=== PATIENT | female | born 1985 | race Caucasian/White ===

== ENCOUNTER 2016-07-29 21:26 | Inpatient (IN) | payer BC ==
[~2016-07-29] VITALS: Ht 171.7 cm; Wt 101.6 kg
[2016-07-29 21:26] VITALS: BP_SYST 153
[~2016-07-29 21:26] MED LIST: ALBU17AE26 IH; LEVO175T2 PO
[2016-07-29] MEDS ORDERED: LIDOCAINE/EPI 1% 1:100000 20 ML VIAL INJ ONE (22:00)
[2016-07-29] MEDS ORDERED: MORPHINE 4 MG/ML INJ. SYRINGE IVP ONE (22:15)
[2016-07-29] MEDS ORDERED: NACL 0.9% 1,000 ML IV ONE (22:15)
[2016-07-29] MEDS ORDERED: ONDANSETRON HCL 4 MG/2 ML VIAL IVP ONE (22:15)
[2016-07-29 22:44] LABS: BASOPHILS % (AUTO) 0.5 % (0.0-2.0); EOSINOPHILS # (AUTO) 0.9 K/uL (0.0-0.4); EOSINOPHILS % (AUTO) 9.3 % (0.0-4.0); HEMATOCRIT 31.8 % (36-48); HEMOGLOBIN 11.2 g/dL (12.0-16.0); LYMPHOCYTES # (AUTO) 3.1 K/uL (1.0-5.5); MEAN CORPUSCULAR HEMOGLOBIN 26 pg (27-31); MEAN CORPUSCULAR HGB CONC 35 % (32-36); MEAN CORPUSCULAR VOLUME 73 fL (79.0-98.0); MONOCYTES # (AUTO) 0.7 K/uL (0.0-1.0); MONOCYTES % (AUTO) 7.5 % (1.7-9.3); NEUTROPHILS # (AUTO) 4.9 K/uL (1.8-7.7); NEUTROPHILS % (AUTO) 50.7 % (40.0-70.0); PLATELET COUNT (AUTO) 204 K/uL (130-430); RED BLOOD CELL COUNT(AUTO) 4.35 MIL/uL (4.2-6.2); RED CELL DISTRIBUTION WIDTH 14.6 % (9.0-15.0); WHITE BLOOD COUNT (AUTO) 9.6 K/uL (4.8-10.8)
[2016-07-29 23:05] LABS: BILIRUBIN,URINE NEGATIVE (NEGATIVE); CLARITY/URINE CLEAR (CLEAR); COLOR,URINE YELLOW (YELLOW); GLUCOSE,URINE NEGATIVE (NEGATIVE); KETONES,URINE NEGATIVE (NEGATIVE); LEUKOCYTE ESTERASE ,URINE NEGATIVE (NEGATIVE); NITRITE, URINE NEGATIVE (NEGATIVE); PH,URINE 5.5 (5.0-8.0); PROTEIN URINE NEGATIVE (NEGATIVE); UROBILINOGEN,URINE 0.2 (0.2-1.0)
[2016-07-29 23:05] LABS: CALCIUM 8.3 mg/dL (8.4-11.0); CREATININE 0.89 mg/dL (0.55-1.30)
[2016-07-29 23:07] LABS: BLOOD, URINE TRACE (NEGATIVE)
[2016-07-29 23:09] LABS: ALBUMIN 3.7 g/dL (3.4-4.8); TOTAL BILIRUBIN 0.2 mg/dL (0.0-1.0); TOTAL PROTEIN, SERUM 7.2 g/dL (6.4-8.3)
[2016-07-29 23:23] LABS: BACTERIA,URINE FEW /HPF (None Seen); MUCUS,URINE None Seen /LPF (None Seen); RBC,URINE 0-3 /HPF (0-3)
[2016-07-30] MEDS ORDERED: MORPHINE 4 MG/ML INJ. SYRINGE IVP ONE
[2016-07-30] MEDS ORDERED: DIPHENHYDRAMINE INJ 50 MG/ML VIAL IVP ONE (01:15)
[2016-07-30] MEDS ORDERED: D5LR 1,000 ML IV SCH (03:00)
[2016-07-30 03:30] VITALS: BP_SYST 102
[2016-07-30 03:36] VITALS: BP_SYST 102
[2016-07-30] MEDS: MORPHINE 4 MG/ML INJ. SYRINGE IVP PRN ×3 (04:31→11:13)
[2016-07-30] MEDS: DIPHENHYDRAMINE INJ 50 MG/ML VIAL IVP PRN (07:01)
[2016-07-30 08:16] VITALS: BP_SYST 95
[2016-07-30] MEDS ORDERED: GASTROGRAFIN 120 ML ONE (08:36)
[2016-07-30] MEDS ORDERED: LOPERAMIDE HCL 2 MG CAPSULE PO ONE (11:30)
[2016-07-30] MEDS ORDERED: LOPERAMIDE HCL 2 MG CAPSULE PO PRN (11:30)
[2016-07-30 11:45] VITALS: BP_SYST 114
[2016-07-30] MEDS ORDERED: LACTOBACILLUS RHAMNOSUS GG 1 CAP CAPSULE PO ONE (11:45)
[2016-07-30] MEDS: LR 1,000 ML IV SCH ×2 (11:58→21:14)
[2016-07-30] MEDS: cefTRIAXone 1 GM IVPB PREMIX 50 ML IV SCH (12:44)
[2016-07-30] MEDS: metroNIDAZOLE 500 MG TABLET PO SCH ×2 (14:36→21:13)
[2016-07-30] MEDS: HYDROmorphone 1 MG INJ. 1 MG/ML AMPUL IVP PRN ×3 (14:37→23:35)
[2016-07-30] MEDS ORDERED: PANTOPRAZOLE SODIUM 40 MG/VIAL (PROTONIX) IVP ONE (17:00)
[2016-07-30 18:21] VITALS: BP_SYST 122
[2016-07-30 20:00] VITALS: BP_SYST 115
[2016-07-30] MEDS: LACTOBACILLUS RHAMNOSUS GG 1 CAP CAPSULE PO SCH (21:13)
[2016-07-31] VITALS: BP_SYST 101
[2016-07-31] MEDS: HYDROmorphone 1 MG INJ. 1 MG/ML AMPUL IVP PRN ×4 (03:33→22:03)
[2016-07-31] MEDS: LR 1,000 ML IV SCH ×4 (03:33→22:03)
[2016-07-31 04:00] VITALS: BP_SYST 112
[2016-07-31] MEDS: metroNIDAZOLE 500 MG TABLET PO SCH ×3 (05:14→21:14)
[2016-07-31 06:35] LABS: PROTHROMBIN TIME 10.4 SECS (9.5-12.5)
[2016-07-31 06:40] LABS: CALCIUM 8.4 mg/dL (8.4-11.0); CREATININE 0.84 mg/dL (0.55-1.30); POTASSIUM 4.1 mmol/L (3.5-5.1)
[2016-07-31 06:58] LABS: BASOPHILS # (AUTO) 0.1 K/uL (0.0-0.2); BASOPHILS % (AUTO) 1.7 % (0.0-2.0); EOSINOPHILS # (AUTO) 0.7 K/uL (0.0-0.4); EOSINOPHILS % (AUTO) 10.5 % (0.0-4.0); HEMATOCRIT 31.9 % (36-48); HEMOGLOBIN 9.9 g/dL (12.0-16.0); LYMPHOCYTES # (AUTO) 1.9 K/uL (1.0-5.5); LYMPHOCYTES % (AUTO) 28.5 % (20.5-51.5); MEAN CORPUSCULAR HEMOGLOBIN 23 pg (27-31); MEAN CORPUSCULAR HGB CONC 31 % (32-36); MEAN CORPUSCULAR VOLUME 74 fL (79.0-98.0); MONOCYTES # (AUTO) 0.7 K/uL (0.0-1.0); MONOCYTES % (AUTO) 9.9 % (1.7-9.3); NEUTROPHILS # (AUTO) 3.4 K/uL (1.8-7.7); NEUTROPHILS % (AUTO) 49.4 % (40.0-70.0); PLATELET COUNT (AUTO) 189 K/uL (130-430); RED BLOOD CELL COUNT(AUTO) 4.28 MIL/uL (4.2-6.2); RED CELL DISTRIBUTION WIDTH 14.9 % (9.0-15.0)
[2016-07-31 07:06] LABS: WHITE BLOOD COUNT (AUTO) 6.8 K/uL (4.8-10.8)
[2016-07-31 07:25] LABS: IRON (SERUM) 47 mcg/dL (37-145); TOTAL IRON BIND. CAPACITY 346 ug/dL (250-450)
[2016-07-31 07:55] VITALS: BP_SYST 123
[2016-07-31] MEDS: PANTOPRAZOLE SODIUM 40 MG/VIAL (PROTONIX) IVP SCH (08:07)
[2016-07-31] MEDS: LACTOBACILLUS RHAMNOSUS GG 1 CAP CAPSULE PO SCH ×2 (08:09→21:12)
[2016-07-31] MEDS: ONDANSETRON HCL 4 MG/2 ML VIAL IVP PRN ×2 (10:00→20:40)
[2016-07-31] MEDS: cefTRIAXone 1 GM IVPB PREMIX 50 ML IV SCH (11:30)
[2016-07-31 12:30] VITALS: BP_SYST 112
[2016-07-31] MEDS ORDERED: MEPERIDINE HCL/PF 100 MG/ML AMP ONE ×2 (12:43)
[2016-07-31] MEDS ORDERED: MIDAZOLAM HCL 5 MG/5 ML VIAL ONE ×2 (12:44)
[2016-07-31] MEDS ORDERED: SIMETHICONE 40 MG/0.6 ML ML ONE (12:44)
[2016-07-31] MEDS ORDERED: MEPERIDINE HCL/PF 100 MG/ML AMP IV ONE (16:12)
[2016-07-31] MEDS ORDERED: MIDAZOLAM HCL 5 MG/5 ML VIAL IVP ONE ×3 (16:14→16:18)
[2016-07-31 18:11] VITALS: BP_SYST 116
[2016-07-31 19:40] VITALS: BP_SYST 115
[2016-07-31] MEDS: DIPHENHYDRAMINE INJ 50 MG/ML VIAL IVP PRN (20:41)
[2016-08-01 04:00] VITALS: BP_SYST 114
[2016-08-01] MEDS: HYDROmorphone 1 MG INJ. 1 MG/ML AMPUL IVP PRN ×4 (04:11→20:43)
[2016-08-01] MEDS: ONDANSETRON HCL 4 MG/2 ML VIAL IVP PRN (04:11)
[2016-08-01] MEDS: LR 1,000 ML IV SCH ×3 (04:13→16:42)
[2016-08-01] MEDS: metroNIDAZOLE 500 MG TABLET PO SCH ×3 (05:50→21:38)
[2016-08-01 06:46] LABS: BASOPHILS % (AUTO) 0.2 % (0.0-2.0); EOSINOPHILS # (AUTO) 0.7 K/uL (0.0-0.4); EOSINOPHILS % (AUTO) 8.1 % (0.0-4.0); HEMATOCRIT 30.8 % (36-48); HEMOGLOBIN 9.8 g/dL (12.0-16.0); LYMPHOCYTES # (AUTO) 1.9 K/uL (1.0-5.5); LYMPHOCYTES % (AUTO) 22.8 % (20.5-51.5); MEAN CORPUSCULAR HEMOGLOBIN 23 pg (27-31); MEAN CORPUSCULAR HGB CONC 32 % (32-36); MEAN CORPUSCULAR VOLUME 74 fL (79.0-98.0); MONOCYTES # (AUTO) 0.6 K/uL (0.0-1.0); MONOCYTES % (AUTO) 7.4 % (1.7-9.3); NEUTROPHILS # (AUTO) 5.2 K/uL (1.8-7.7); NEUTROPHILS % (AUTO) 61.5 % (40.0-70.0); RED BLOOD CELL COUNT(AUTO) 4.19 MIL/uL (4.2-6.2); RED CELL DISTRIBUTION WIDTH 14.3 % (9.0-15.0)
[2016-08-01 06:50] LABS: CALCIUM 8.4 mg/dL (8.4-11.0); CREATININE 1.03 mg/dL (0.55-1.30); POTASSIUM 3.8 mmol/L (3.5-5.1)
[2016-08-01 07:35] LABS: WHITE BLOOD COUNT (AUTO) 8.4 K/uL (4.8-10.8)
[2016-08-01 07:53] VITALS: BP_SYST 129
[2016-08-01] MEDS: LACTOBACILLUS RHAMNOSUS GG 1 CAP CAPSULE PO SCH ×2 (09:15→20:40)
[2016-08-01] MEDS: PANTOPRAZOLE SODIUM 40 MG/VIAL (PROTONIX) IVP SCH (09:22)
[2016-08-01 10:00] LABS: PLATELET COUNT (AUTO) 224 K/uL (130-430)
[2016-08-01] MEDS: DIPHENHYDRAMINE INJ 50 MG/ML VIAL IVP PRN ×3 (10:37→21:38)
[2016-08-01] MEDS: cefTRIAXone 1 GM IVPB PREMIX 50 ML IV SCH (11:55)
[2016-08-01 12:00] VITALS: BP_SYST 123; BP_SYST 134
[2016-08-01] MEDS: SOD FERRIC GLUC COMPLEX/SUC 125 MG in NS 100 ML IV SCH (15:14)
[2016-08-01 16:54] VITALS: BP_SYST 121
[2016-08-01 19:20] VITALS: BP_SYST 126
[2016-08-02 01:00] VITALS: BP_SYST 116
[2016-08-02] MEDS: DIPHENHYDRAMINE INJ 50 MG/ML VIAL IVP PRN ×5 (02:40→20:46)
[2016-08-02] MEDS: HYDROmorphone 1 MG INJ. 1 MG/ML AMPUL IVP PRN ×5 (02:40→20:48)
[2016-08-02] MEDS: LR 1,000 ML IV SCH ×4 (02:49→18:35)
[2016-08-02 03:34] VITALS: BP_SYST 127
[2016-08-02] MEDS: metroNIDAZOLE 500 MG TABLET PO SCH ×3 (06:01→22:59)
[2016-08-02 08:10] VITALS: BP_SYST 127
[2016-08-02] MEDS: PANTOPRAZOLE SODIUM 40 MG/VIAL (PROTONIX) IVP SCH (08:12)
[2016-08-02] MEDS: LACTOBACILLUS RHAMNOSUS GG 1 CAP CAPSULE PO SCH ×2 (08:13→20:46)
[2016-08-02 12:00] VITALS: BP_SYST 122
[2016-08-02] MEDS: cefTRIAXone 1 GM IVPB PREMIX 50 ML IV SCH (12:10)
[2016-08-02] MEDS: SOD FERRIC GLUC COMPLEX/SUC 125 MG in NS 100 ML IV SCH (15:54)
[2016-08-02 16:49] VITALS: BP_SYST 124
[2016-08-02 19:30] VITALS: BP_SYST 130
[2016-08-03 00:17] VITALS: BP_SYST 121
[2016-08-03] MEDS: HYDROmorphone 1 MG INJ. 1 MG/ML AMPUL IVP PRN ×4 (00:49→12:10)
[2016-08-03] MEDS: DIPHENHYDRAMINE INJ 50 MG/ML VIAL IVP PRN ×7 (00:49→22:45)
[2016-08-03] MEDS: ONDANSETRON HCL 4 MG/2 ML VIAL IVP PRN ×2 (00:54→19:05)
[2016-08-03 04:00] VITALS: BP_SYST 130
[2016-08-03] MEDS: metroNIDAZOLE 500 MG TABLET PO SCH (05:07)
[2016-08-03] MEDS: LR 1,000 ML IV SCH ×3 (05:08→19:01)
[2016-08-03] MEDS: PANTOPRAZOLE SODIUM 40 MG/VIAL (PROTONIX) IVP SCH (08:28)
[2016-08-03] MEDS: LACTOBACILLUS RHAMNOSUS GG 1 CAP CAPSULE PO SCH ×2 (08:28→21:05)
[2016-08-03] MEDS ORDERED: MAGNESIUM CITRATE 300 ML ORAL SOLUTION PO ONE (09:00)
[2016-08-03 10:13] LABS: BASOPHILS % (AUTO) 0.6 % (0.0-2.0); EOSINOPHILS # (AUTO) 0.7 K/uL (0.0-0.4); HEMATOCRIT 30.7 % (36-48); HEMOGLOBIN 9.6 g/dL (12.0-16.0); LYMPHOCYTES # (AUTO) 1.8 K/uL (1.0-5.5); LYMPHOCYTES % (AUTO) 25.3 % (20.5-51.5); MEAN CORPUSCULAR HEMOGLOBIN 23 pg (27-31); MEAN CORPUSCULAR HGB CONC 31 % (32-36); MEAN CORPUSCULAR VOLUME 73 fL (79.0-98.0); MONOCYTES # (AUTO) 0.7 K/uL (0.0-1.0); MONOCYTES % (AUTO) 9.7 % (1.7-9.3); NEUTROPHILS # (AUTO) 3.9 K/uL (1.8-7.7); NEUTROPHILS % (AUTO) 54.4 % (40.0-70.0); PLATELET COUNT (AUTO) 213 K/uL (130-430); RED BLOOD CELL COUNT(AUTO) 4.19 MIL/uL (4.2-6.2); RED CELL DISTRIBUTION WIDTH 14.4 % (9.0-15.0); WHITE BLOOD COUNT (AUTO) 7.1 K/uL (4.8-10.8)
[2016-08-03 10:22] VITALS: BP_SYST 112
[2016-08-03 10:25] LABS: CALCIUM 8.3 mg/dL (8.4-11.0); CREATININE 0.82 mg/dL (0.55-1.30); POTASSIUM 4.1 mmol/L (3.5-5.1)
[2016-08-03 10:30] LABS: ALBUMIN 3.1 g/dL (3.4-4.8); TOTAL BILIRUBIN 0.3 mg/dL (0.0-1.0); TOTAL PROTEIN, SERUM 6.2 g/dL (6.4-8.3)
[2016-08-03 11:01] LABS: ERYTHROCYTE SEDIMENTATION RATE 7 MM/HR (0-20)
[2016-08-03 11:17] VITALS: BP_SYST 139
[2016-08-03] MEDS: AMITRIPTYLINE HCL 10 MG TABLET (ELAVIL) PO SCH ×2 (12:02→21:05)
[2016-08-03] MEDS: cefTRIAXone 1 GM IVPB PREMIX 50 ML IV SCH (12:06)
[2016-08-03] MEDS ORDERED: MORPHINE 2 MG/ML INJ. SYRINGE IVP PRN (13:15)
[2016-08-03] MEDS ORDERED: HYDROcodone/ACETAMIN 5-325 MG TAB (NORCO/ VICODIN) PO PRN (13:30)
[2016-08-03] MEDS: MORPHINE 4 MG/ML INJ. SYRINGE IVP PRN ×2 (15:38→21:09)
[2016-08-03] MEDS: SOD FERRIC GLUC COMPLEX/SUC 125 MG in NS 100 ML IV SCH (15:39)
[2016-08-03 16:04] VITALS: BP_SYST 131
[2016-08-03] MEDS: MORPHINE 2 MG/ML INJ. SYRINGE IVP PRN (18:53)
[2016-08-03 20:30] VITALS: BP_SYST 127
[2016-08-04] VITALS: BP_SYST 131
[2016-08-04] MEDS: MORPHINE 4 MG/ML INJ. SYRINGE IVP PRN ×4 (03:28→23:32)
[2016-08-04] MEDS: ONDANSETRON HCL 4 MG/2 ML VIAL IVP PRN ×5 (03:29→23:33)
[2016-08-04] MEDS: DIPHENHYDRAMINE INJ 50 MG/ML VIAL IVP PRN ×5 (03:40→23:33)
[2016-08-04] MEDS: LR 1,000 ML IV SCH ×2 (03:42→13:49)
[2016-08-04 04:00] VITALS: BP_SYST 118; BP_SYST 188
[2016-08-04 08:00] VITALS: BP_SYST 132
[2016-08-04] MEDS ORDERED: MINERAL OIL 30 ML UDC PO ONE (09:30)
[2016-08-04] MEDS ORDERED: CLOTRIMAZOLE/BETAMETHASONE 45 GM TOPICAL CREAM TP SCH (09:30)
[2016-08-04] MEDS ORDERED: MAGNESIUM CITRATE 300 ML ORAL SOLUTION PO ONE (09:30)
[2016-08-04] MEDS ORDERED: NA PHOS,M-B/NA PHOS,DI-BA 118 ML (FLEET ENEMA) RC ONE (09:30)
[2016-08-04] MEDS ORDERED: FLUCONAZOLE 100 MG TABLET (DIFLUCAN) PO ONE (09:45)
[2016-08-04] MEDS: POLYETHYLENE GLYCOL 3350, 17 GM/ POWD.PACK PO SCH (09:51)
[2016-08-04] MEDS: LACTOBACILLUS RHAMNOSUS GG 1 CAP CAPSULE PO SCH ×2 (09:51→20:42)
[2016-08-04] MEDS: AMITRIPTYLINE HCL 10 MG TABLET (ELAVIL) PO SCH ×2 (09:51→20:42)
[2016-08-04] MEDS: PANTOPRAZOLE SODIUM 40 MG/VIAL (PROTONIX) IVP SCH (09:51)
[2016-08-04] MEDS: DOCUSATE SODIUM 100 MG CAPSULE PO SCH (09:51)
[2016-08-04 12:00] VITALS: BP_SYST 132
[2016-08-04] MEDS: SOD FERRIC GLUC COMPLEX/SUC 125 MG in NS 100 ML IV SCH (15:09)
[2016-08-04 16:41] VITALS: BP_SYST 109
[2016-08-04 20:15] VITALS: BP_SYST 113
[2016-08-04] MEDS: CLOTRIMAZOLE/BETAMET DIPROP 15 GM TUBE TP SCH (20:43)
[2016-08-05] VITALS (8 sets, daily range): BP systolic 117–139
[2016-08-05] MEDS: LR 1,000 ML IV SCH ×3 (04:19→13:42)
[2016-08-05] MEDS: PANTOPRAZOLE SODIUM 40 MG/VIAL (PROTONIX) IVP SCH (08:19)
[2016-08-05] MEDS: DOCUSATE SODIUM 100 MG CAPSULE PO SCH (08:19)
[2016-08-05] MEDS: LACTOBACILLUS RHAMNOSUS GG 1 CAP CAPSULE PO SCH ×2 (08:19→21:47)
[2016-08-05] MEDS: AMITRIPTYLINE HCL 10 MG TABLET (ELAVIL) PO SCH ×2 (08:19→21:47)
[2016-08-05] MEDS: FLUCONAZOLE 100 MG TABLET (DIFLUCAN) PO SCH (08:20)
[2016-08-05] MEDS: POLYETHYLENE GLYCOL 3350, 17 GM/ POWD.PACK PO SCH (08:21)
[2016-08-05] MEDS ORDERED: MINERAL OIL 30 ML UDC PO PRN (08:30)
[2016-08-05] MEDS: ONDANSETRON HCL 4 MG/2 ML VIAL IVP PRN ×4 (08:40→21:49)
[2016-08-05] MEDS: MORPHINE 2 MG/ML INJ. SYRINGE IVP PRN (08:42)
[2016-08-05] MEDS: DIPHENHYDRAMINE INJ 50 MG/ML VIAL IVP PRN ×4 (08:43→21:48)
[2016-08-05] MEDS: CLOTRIMAZOLE/BETAMET DIPROP 15 GM TUBE TP SCH ×2 (08:48→21:55)
[2016-08-05] MEDS: MORPHINE 4 MG/ML INJ. SYRINGE IVP PRN ×3 (13:32→21:49)
[2016-08-05] MEDS: SOD FERRIC GLUC COMPLEX/SUC 125 MG in NS 100 ML IV SCH (15:23)
[2016-08-06] VITALS (7 sets, daily range): BP systolic 112–139
[2016-08-06] MEDS: ONDANSETRON HCL 4 MG/2 ML VIAL IVP PRN ×3 (01:32→10:03)
[2016-08-06] MEDS: DIPHENHYDRAMINE INJ 50 MG/ML VIAL IVP PRN ×5 (01:32→18:49)
[2016-08-06] MEDS: MORPHINE 4 MG/ML INJ. SYRINGE IVP PRN ×5 (01:33→18:48)
[2016-08-06 06:55] LABS: CALCIUM 8.2 mg/dL (8.4-11.0); CREATININE 0.84 mg/dL (0.55-1.30); POTASSIUM 3.6 mmol/L (3.5-5.1); TOTAL BILIRUBIN 0.6 mg/dL (0.0-1.0); TOTAL PROTEIN, SERUM 6.2 g/dL (6.4-8.3)
[2016-08-06 06:58] LABS: BASOPHILS # (AUTO) 0.1 K/uL (0.0-0.2); BASOPHILS % (AUTO) 0.7 % (0.0-2.0); EOSINOPHILS # (AUTO) 0.7 K/uL (0.0-0.4); EOSINOPHILS % (AUTO) 7.3 % (0.0-4.0); HEMATOCRIT 31.9 % (36-48); HEMOGLOBIN 9.7 g/dL (12.0-16.0); LYMPHOCYTES % (AUTO) 22.4 % (20.5-51.5); MEAN CORPUSCULAR HEMOGLOBIN 23 pg (27-31); MEAN CORPUSCULAR HGB CONC 31 % (32-36); MEAN CORPUSCULAR VOLUME 75 fL (79.0-98.0); MONOCYTES # (AUTO) 0.8 K/uL (0.0-1.0); MONOCYTES % (AUTO) 9.2 % (1.7-9.3); NEUTROPHILS # (AUTO) 5.5 K/uL (1.8-7.7); NEUTROPHILS % (AUTO) 60.4 % (40.0-70.0); PLATELET COUNT (AUTO) 217 K/uL (130-430); RED BLOOD CELL COUNT(AUTO) 4.24 MIL/uL (4.2-6.2); RED CELL DISTRIBUTION WIDTH 15.1 % (9.0-15.0); WHITE BLOOD COUNT (AUTO) 9.1 K/uL (4.8-10.8)
[2016-08-06] MEDS ORDERED: MILK OF MAGNESIA 30 ML UDC PO ONE (08:15)
[2016-08-06] MEDS: AMITRIPTYLINE HCL 10 MG TABLET (ELAVIL) PO SCH (09:54)
[2016-08-06] MEDS: PANTOPRAZOLE SODIUM 40 MG/VIAL (PROTONIX) IVP SCH (09:54)
[2016-08-06] MEDS: DOCUSATE SODIUM 100 MG CAPSULE PO SCH (09:54)
[2016-08-06] MEDS: FLUCONAZOLE 100 MG TABLET (DIFLUCAN) PO SCH (09:54)
[2016-08-06] MEDS: LACTOBACILLUS RHAMNOSUS GG 1 CAP CAPSULE PO SCH (09:54)
[2016-08-06] MEDS: POLYETHYLENE GLYCOL 3350, 17 GM/ POWD.PACK PO SCH (09:59)
[2016-08-06] MEDS: CLOTRIMAZOLE/BETAMET DIPROP 15 GM TUBE TP SCH (10:04)
[2016-08-06] MEDS: SOD FERRIC GLUC COMPLEX/SUC 125 MG in NS 100 ML IV SCH (14:21)
[2016-08-06 15:52] LABS: RETICULOCYTE COUNT 2.2 % (0.5-1.5)
[2016-08-06] MEDS: LR 1,000 ML IV SCH (17:39)
== END 2016-08-06 23:23 | disposition short-term general hospital (02) | DRG 392 ==
LOC: SED 21:26 → SMU 07-30 02:51
PROVIDERS: ADMIT Internal Medicine; ATTEND Internal Medicine
PROC: 0DB68ZX Excision of Stomach, Via Natural or Artificial Opening Endoscopic, Diagnostic (ICD-10-PCS; 2016-07-31)
PROC: 0DB98ZX Excision of Duodenum, Via Natural or Artificial Opening Endoscopic, Diagnostic (ICD-10-PCS; principal; 2016-07-31 13:00)
DX: K29.00 Acute gastritis without bleeding (principal); N39.0 Urinary tract infection, site not specified; E44.1 Mild protein-calorie malnutrition; K52.9 Noninfective gastroenteritis and colitis, unspecified; J45.909 Unspecified asthma, uncomplicated; E06.3 Autoimmune thyroiditis; E03.9 Hypothyroidism, unspecified; R10.9 Unspecified abdominal pain; E66.9 Obesity, unspecified; R16.2 Hepatomegaly with splenomegaly, not elsewhere classified; K42.9 Umbilical hernia without obstruction or gangrene; K76.0 Fatty (change of) liver, not elsewhere classified; K59.00 Constipation, unspecified; N83.201 Unspecified ovarian cyst, right side; N83.202 Unspecified ovarian cyst, left side; D50.9 Iron deficiency anemia, unspecified; Z68.34 Body mass index [BMI] 34.0-34.9, adult; Z80.3 Family history of malignant neoplasm of breast; Z79.899 Other long term (current) drug therapy; Z90.89 Acquired absence of other organs
CPT/HCPCS: 36415; 43239; 74250-TC; 76700-TC; 80048; 80053; 81000-TC; 81025; 82272; 83540-TC; 83550-TC; 83690-TC; 84703; 85025; 85044-TC; 85610-TC; 85651-TC; 87045-TC; 87046; 87081; 87086; 87230-TC; 88305; 88312; 88313; 89055; 96361; 96374; 96375; 96376; 99285; C9113; J0696; J1170; J1200; J2175; J2250; J2270; J2405; J2916; J7030; J7120; Q9963

== ENCOUNTER 2017-11-10 16:10 | Emergency (ER) | payer BC ==
[~2017-11-10] VITALS: Ht 170.2 cm; Wt 86.2 kg
[2017-11-10] MEDS ORDERED: NACL 0.9% 1,000 ML IV ONE (16:16)
[2017-11-10 16:25] VITALS: BP_SYST 128
[2017-11-10] MEDS ORDERED: ONDANSETRON HCL 4 MG/2 ML VIAL IVP ONE ×2 (16:30→16:45)
[2017-11-10] MEDS ORDERED: MORPHINE 4 MG/ML INJ. SYRINGE IVP ONE (16:30)
[2017-11-10 17:17] LABS: BASOPHILS # (AUTO) 0.1 K/uL (0.0-0.2); BASOPHILS % (AUTO) 0.7 % (0.0-2.0); EOSINOPHILS # (AUTO) 0.7 K/uL (0.0-0.4); EOSINOPHILS % (AUTO) 8.4 % (0.0-4.0); HEMATOCRIT 30.8 % (36-48); HEMOGLOBIN 9.3 g/dL (12.0-16.0); LYMPHOCYTES # (AUTO) 2.4 K/uL (1.0-5.5); LYMPHOCYTES % (AUTO) 27.3 % (20.5-51.5); MEAN CORPUSCULAR HEMOGLOBIN 20 pg (27-31); MEAN CORPUSCULAR HGB CONC 30 % (32-36); MEAN CORPUSCULAR VOLUME 67 fL (79.0-98.0); MONOCYTES # (AUTO) 0.6 K/uL (0.0-1.0); MONOCYTES % (AUTO) 6.7 % (1.7-9.3); NEUTROPHILS % (AUTO) 56.9 % (40.0-70.0); RED BLOOD CELL COUNT(AUTO) 4.62 MIL/uL (4.2-6.2); RED CELL DISTRIBUTION WIDTH 18.4 % (9.0-15.0); WHITE BLOOD COUNT (AUTO) 8.8 K/uL (4.8-10.8)
[2017-11-10 17:28] LABS: CALCIUM 8.5 mg/dL (8.4-11.0); CREATININE 0.9 mg/dL (0.55-1.30); POTASSIUM 3.9 mmol/L (3.5-5.1)
[2017-11-10 17:34] LABS: BILIRUBIN,URINE NEGATIVE (NEGATIVE); BLOOD, URINE NEGATIVE (NEGATIVE); CLARITY/URINE SL HAZY (CLEAR); COLOR,URINE YELLOW (YELLOW); GLUCOSE,URINE NEGATIVE (NEGATIVE); KETONES,URINE NEGATIVE (NEGATIVE); LEUKOCYTE ESTERASE ,URINE NEGATIVE (NEGATIVE); NITRITE, URINE NEGATIVE (NEGATIVE); PH,URINE 5.5 (5.0-8.0); PROTEIN URINE NEGATIVE (NEGATIVE); UROBILINOGEN,URINE 0.2 (0.2-1.0)
[2017-11-10 17:42] LABS: ALBUMIN 3.7 g/dL (3.4-4.8); INR 0.9 (0.8-1.2); PROTHROMBIN TIME 9.2 SECS (9.5-12.5); TOTAL BILIRUBIN 0.3 mg/dL (0.0-1.0)
[2017-11-10 17:54] LABS: BACTERIA,URINE MODERATE /HPF (None Seen); MUCUS,URINE 1+ /LPF (None Seen); RBC,URINE NONE SEEN /HPF (0-3)
[2017-11-10 17:56] LABS: BARBITURATE, URINE NEGATIVE (NEG <=200); URINE AMPHETAMINE POSITIVE (NEG <=500)
[2017-11-10 17:57] LABS: BENZODIAZEPINE, URINE NEGATIVE (NEG <=150); CANNABINOID, URINE NEGATIVE (NEG <=50); COCAINE, URINE NEGATIVE (NEG <=150); METHAMPHETAMINES SCREEN,URINE POSITIVE (NEG <=500); OPIATE, URINE NEGATIVE (NEG <=100); PHENCYCLIDINE SCREEN,URINE NEGATIVE (NEG <=25); UR TRICYCLIC ANTIDEPRESSANTS NEGATIVE (NEG <=300); URINE METHADONE NEGATIVE (NEG <=200); URINE OXYCODONE SCREEN NEGATIVE (NEG <=100); URINE PROPOXYPHENE SCREEN NEGATIVE (NEG <=300)
[2017-11-10 18:15] LABS: PLATELET COUNT (AUTO) 293 K/uL (130-430)
[2017-11-10] MEDS ORDERED: HYDROmorphone 2 MG/ML VIAL IVP ONE (18:30)
[2017-11-10 19:06] VITALS: BP_SYST 120
== END 2017-11-10 19:06 | disposition home or self-care (01) ==
LOC: SED 16:10
DX: K85.90 Acute pancreatitis without necrosis or infection, unspecified (principal); F15.10 Other stimulant abuse, uncomplicated; R03.0 Elevated blood-pressure reading, without diagnosis of hypertension; J45.909 Unspecified asthma, uncomplicated; Z90.89 Acquired absence of other organs
CPT/HCPCS: 36415; 71045; 80053; 80307; 81000; 82150; 82550; 83690; 84484; 85025; 85610; 85730; 87086; 93005; 96361; 96374; 96375; 99285; J1170; J2405; J7030; J2270

== ENCOUNTER 2020-10-21 12:07 | Emergency (ER) | payer BC, OTHER ==
[~2020-10-21] VITALS: Ht 170.2 cm; Wt 86.2 kg
[2020-10-21 12:17] VITALS: BP_SYST 127
[2020-10-21] MEDS ORDERED: EPINEPHrine 1 MG/ML AMP IM ONE (12:30)
[2020-10-21] MEDS ORDERED: FAMOTIDINE 20 MG TABLET PO ONE (12:30)
[2020-10-21] MEDS ORDERED: predniSONE 20 MG TABLET PO ONE (12:30)
[2020-10-21] MEDS ORDERED: EPIN0.3P3 IM (13:23)
[2020-10-21 13:38] VITALS: BP_SYST 112
== END 2020-10-21 13:36 | disposition home or self-care (01) ==
LOC: SED 12:07
DX: L50.9 Urticaria, unspecified (principal); J45.909 Unspecified asthma, uncomplicated
CPT/HCPCS: 81025; 96372; 99283; J0171; J7512

== ENCOUNTER 2020-11-20 15:03 | Emergency (ER) | payer OTHER ==
[~2020-11-20] VITALS: Ht 170.2 cm; Wt 88.5 kg
[~2020-11-20 15:03] MED LIST changes: -ALBU17AE26 IH; +EPIN0.3P3 IM; -LEVO175T2 PO
[2020-11-20 15:06] VITALS: BP_SYST 143
--- NOTE | 2020-11-20 15:25 | NUR ---
Patient to ER bed 01 to gown for evaluation. Side rails up.
--- NOTE | 2020-11-20 15:26 | NUR ---
Pt brought by self, pt presents to ER with skin rash/ hives on back and bilateral arms, denies SOB or other symptoms, afebrile, VSS, will cont to monitor.
[2020-11-20] MEDS ORDERED: predniSONE 20 MG TABLET PO ONE (15:45)
--- NOTE | 2020-11-20 15:45 | NUR ---
JANE Mcdowell at bedside examining patient.
[2020-11-20] MEDS ORDERED: PRED20TA PO (15:46)
[2020-11-20] MEDS ORDERED: [UNRECOGNIZED DRUG - CODE] PO (15:47)
[2020-11-20] MEDS ORDERED: FAMO-132 PO (15:47)
[2020-11-20 15:56] VITALS: BP_SYST 143
--- NOTE | 2020-11-20 15:57 | NUR ---
Patient given written and verbal discharge instructions and verbalizes understanding. ER MD discussed with patient the results and treatment provided. Patient in stable condition. ID arm band removed. Rx of BENADRYL, PEPCID, AND given. Patient educated on pain management and to follow up with PMD. Pain Scale 3/10. Opportunity for questions provided and answered. Medication side effect fact sheet provided.
== END 2020-11-20 15:57 | disposition home or self-care (01) ==
LOC: SED 15:03
DX: L50.8 Other urticaria (principal)
CPT/HCPCS: 99283; J7512

== ENCOUNTER 2020-12-12 11:00 | Emergency (ER) | payer OTHER ==
[~2020-12-12] VITALS: Ht 167.6 cm; Wt 85.3 kg
[~2020-12-12 11:00] MED LIST changes: +FAMO-132 PO; +PRED20TA PO; +[UNRECOGNIZED DRUG - CODE] PO
[2020-12-12 11:05] VITALS: BP_SYST 144
--- NOTE | 2020-12-12 11:05 | NUR ---
RECEIVED AND IN ROOM 3, STEADY GAIT, RESP UNLABORED, COMMUNICATES CLOEARLY INF ULL COMPLETE SENTECES
--- NOTE | 2020-12-12 11:30 | NUR ---
C/O BLE HIVES, CP AND GENERALIZED BODY ACHES. NO DISTRESS
[2020-12-12] MEDS ORDERED: KETOROLAC TROMETHAMINE 30 MG VIAL IVP ONE (12:00)
[2020-12-12] MEDS ORDERED: ONDANSETRON HCL 4 MG/2 ML VIAL IVP ONE (12:00)
[2020-12-12] MEDS ORDERED: NACL 0.9% 1,000 ML IV ONE (12:00)
[2020-12-12] MEDS ORDERED: methylPREDNISolone SOD SUCC/PF 62.5 MG/ML VIAL IVP ONE (12:00)
[2020-12-12] MEDS ORDERED: MORPHINE 2 MG/ML INJ. SYRINGE IVP ONE (12:00)
--- NOTE | 2020-12-12 12:18 | NUR ---
DR CONCEPCION IN TO ASSESS
[2020-12-12 12:19] LABS: BASOPHILS # (AUTO) 0.1 K/uL (0.0-0.2); BASOPHILS % (AUTO) 0.6 % (0.0-2.0); EOSINOPHILS # (AUTO) 0.2 K/uL (0.0-0.4); EOSINOPHILS % (AUTO) 2.6 % (0.0-4.0); HEMATOCRIT 27.4 % (36-48); HEMOGLOBIN 8.1 g/dL (12.0-16.0); LYMPHOCYTES # (AUTO) 1.4 K/uL (1.0-5.5); LYMPHOCYTES % (AUTO) 15.5 % (20.5-51.5); MEAN CORPUSCULAR HEMOGLOBIN 19 pg (27-31); MEAN CORPUSCULAR HGB CONC 29 % (32-36); MEAN CORPUSCULAR VOLUME 63 fL (79.0-98.0); MONOCYTES # (AUTO) 0.5 K/uL (0.0-1.0); MONOCYTES % (AUTO) 5.6 % (1.7-9.3); NEUTROPHILS # (AUTO) 6.6 K/uL (1.8-7.7); NEUTROPHILS % (AUTO) 75.7 % (40.0-70.0); PLATELET COUNT (AUTO) 357 K/uL (130-430); RED BLOOD CELL COUNT(AUTO) 4.35 MIL/uL (4.2-6.2); RED CELL DISTRIBUTION WIDTH 18.7 % (9.0-15.0); WHITE BLOOD COUNT (AUTO) 8.7 K/uL (4.8-10.8)
[2020-12-12 12:24] LABS: CALCIUM 8.1 mg/dL (8.4-11.0); CREATININE 0.75 mg/dL (0.55-1.30); POTASSIUM 3.7 mmol/L (3.5-5.1)
[2020-12-12 12:30] LABS: ALBUMIN 3.4 g/dL (3.4-4.8); TOTAL BILIRUBIN 0.4 mg/dL (0.0-1.0)
[2020-12-12 13:15] LABS: BILIRUBIN,URINE NEGATIVE (NEGATIVE); BLOOD, URINE 2+ (NEGATIVE); CLARITY/URINE TURBID (CLEAR); COLOR,URINE YELLOW (YELLOW); GLUCOSE,URINE NEGATIVE (NEGATIVE); KETONES,URINE NEGATIVE (NEGATIVE); LEUKOCYTE ESTERASE ,URINE TRACE (NEGATIVE); NITRITE, URINE NEGATIVE (NEGATIVE); PH,URINE 5.5 (5.0-8.0); PROTEIN URINE NEGATIVE (NEGATIVE); UROBILINOGEN,URINE 0.2 (0.2-1.0)
--- NOTE | 2020-12-12 13:15 | NUR ---
CALM, ALERT, DECREASED HIVES OBSERVED, NO DISTRESS. STATED FEELING BETTER
[2020-12-12] MEDS ORDERED: DIPHENHYDRAMINE INJ 50 MG/ML VIAL IVP ONE (13:30)
[2020-12-12] MEDS ORDERED: DIPHENHYDRAMINE INJ 50 MG/ML VIAL ONE (13:33)
[2020-12-12] MEDS ORDERED: PRED20TA PO (14:02)
[2020-12-12 14:09] LABS: BACTERIA,URINE FEW /HPF (None Seen); WBC,URINE 0-3 /HPF (0-3)
[2020-12-12 14:10] LABS: MUCUS,URINE 1+ /LPF (None Seen)
[2020-12-12 14:28] VITALS: BP_SYST 131
--- NOTE | 2020-12-12 14:29 | NUR ---
Patient given written and verbal discharge instructions and verbalizes understanding. ER MD discussed with patient the results and treatment provided. Patient in stable condition. ID arm band removed. IV catheter removed intact and dressing applied, no active bleeding. Rx of PREDNISONE given. Patient educated on pain management and to follow up with PMD. Pain Scale 0/10 Opportunity for questions provided and answered. Medication side effect fact sheet provided.
== END 2020-12-12 14:28 | disposition home or self-care (01) ==
LOC: SED 11:00
DX: R07.2 Precordial pain (principal); L50.9 Urticaria, unspecified; D64.9 Anemia, unspecified; E03.9 Hypothyroidism, unspecified; Z88.1 Allergy status to other antibiotic agents; Z79.899 Other long term (current) drug therapy
CPT/HCPCS: 36415; 80053; 81000; 83690; 85025; 93005; 96374; 96375; 99284; J1200; J1885; J2270; J2405; J2930

== ENCOUNTER 2021-01-07 12:44 | Emergency (ER) | payer OTHER ==
[~2021-01-07] VITALS: Ht 170.2 cm; Wt 90.7 kg
[2021-01-07 13:05] VITALS: BP_SYST 140
--- NOTE | 2021-01-07 13:05 | NUR ---
Pt to [facility] for evaluation.
--- NOTE | 2021-01-07 13:15 | NUR ---
Pt AAO and ambulatory reporting worsening rash since last night. Pt has hives on arms and rash to mouth, lips, and eyes. The rash continues to get worse and pt rates pain 9/10 on pain scale. pt has history of thyroid and denies introducing anything new to her diet or lifestyle.
--- NOTE | 2021-01-07 13:20 | NUR ---
Dr. Castellanos at bedside to assess.
[2021-01-07] MEDS ORDERED: FAMOTIDINE 20 MG TABLET PO ONE (13:30)
[2021-01-07] MEDS ORDERED: predniSONE 20 MG TABLET PO ONE (13:30)
[2021-01-07] MEDS ORDERED: DIPHENHYDRAMINE HCL 50 MG CAPSULE PO ONE (13:30)
[2021-01-07] MEDS ORDERED: PRED20TA PO (14:37)
[2021-01-07] MEDS ORDERED: FAMO40TA71 PO (14:37)
[2021-01-07] MEDS ORDERED: BEN50 PO (14:37)
[2021-01-07 15:10] VITALS: BP_SYST 132
--- NOTE | 2021-01-07 15:10 | NUR ---
Patient given written and verbal discharge instructions and verbalizes understanding. ER MD discussed with patient the results and treatment provided. Patient in stable condition. ID arm band removed. Rx of Diphenhydramine, pepcid Prednisone given. Patient educated on pain management and to follow up with PMD. Pain Scale 0/10 Opportunity for questions provided and answered. Medication side effect fact sheet provided.
== END 2021-01-07 15:10 | disposition home or self-care (01) ==
LOC: SED 12:44
DX: L50.9 Urticaria, unspecified (principal); J45.909 Unspecified asthma, uncomplicated; Z88.1 Allergy status to other antibiotic agents; Z88.5 Allergy status to narcotic agent
CPT/HCPCS: 99284; J7512; Q0163